=== PATIENT | female | born 1950 | race Hispanic/Latino ===

== ENCOUNTER 2025-07-03 06:06 | Day surgery (SDC) | payer MEDICARE ==
[2025-07-01 13:03] LABS: IMMATURE GRANULOCYTE ABSOLUTE 0.02 K/uL (0-1); NUCLEATED RED BLOOD CELLS 0.0 % (0.0-0.19); PLATELET COUNT (AUTO) 291 K/uL (130-400); RED BLOOD CELL COUNT(AUTO) 4.31 MIL/uL (4.00-5.50); RED CELL DISTRIBUTION WIDTH 12.2 % (11.0-15.5); WHITE BLOOD COUNT (AUTO) 10.1 K/uL (4.8-10.8)
[2025-07-01 13:09] VITALS: BP 123/69; PULSE 67; RESP 17; TEMP 98.1
[2025-07-01 13:13] LABS: CREATININE 0.7 mg/dL (0.5-1.0); GLOMERULAR FILTR. RATE CALC 92.0 mL/min (>90); GLUCOSE,RANDOM 91.0 mg/dL (70-105); SODIUM SERUM 136.0 mmol/L (136-145); UREA NITROGEN, BLOOD 15.0 mg/dL (7-18)
--- NOTE | 2025-07-01 14:22 | EKG ---
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
[2025-07-03] VITALS (15 sets, daily range): BP systolic 94–124; BP diastolic 56–71; PULSE 53–74; RESP 12–22; TEMP 97–97.3
[~2025-07-03] VITALS: Ht 154.9 cm; Wt 56.7 kg
[~2025-07-03 06:06] MED LIST: ALPR0.5T PO; CELE200C3 PO; CETI10TA57 PO; CHOL500051 PO; DAPA10TA PO; ESCI-8 PO; FLUT16H NASAL; FOLI1 PO; MELO-106 PO; MEMA10TA21 PO; NEBI5TAB12 PO; ROSU40 PO; TRAZ-187 PO
[2025-07-03] MEDS ORDERED: SUGAMMADEX SODIUM 200 MG/2 ML VIAL IV ONE (06:39)
[2025-07-03] MEDS ORDERED: LIDOCAINE PF 100MG/5ML (2%) SYRINGE 5ML ONE (06:44)
[2025-07-03] MEDS ORDERED: NEOSTIGMINE METHYLSULFATE 1MG/ML IV ONE (06:45)
[2025-07-03] MEDS ORDERED: SUCCINYLCHOLINE CHLORIDE 20 MG/ML 10 ML VIAL ONE (06:45)
[2025-07-03] MEDS ORDERED: GLYCOPYRROLATE 0.2 MG/ML 5 ML VIAL ONE (06:45)
[2025-07-03] MEDS ORDERED: MIDAZOLAM HCL 1 MG/ML 2ML VIAL ONE (06:49)
[2025-07-03] MEDS: LACTATED RINGERS 1000ML 1,000 ML IV ONE (08:07)
--- NOTE | 2025-07-03 10:50 | OP ---
Operative Note: DATE OF PROCEDURE: 07/03/25 SURGEON: CARMEN TREVINO DPM CHEMICAL LAB TECHNICIAN: Ashley Dumont ANESTHESIA: General PREOPERATIVE DIAGNOSIS: 1. Hallux valgus left foot 2. Hammertoe deformities 2nd and 3rd digits left foot POSTOPERATIVE DIAGNOSIS: Same Findings: Anatomical alignment was achieved PROCEDURE: 1. Lapidus tarsometatarsal joint arthrodesis left foot 2. Correction of hammertoe deformity 2nd and 3rd digits left foot ESTIMATED BLOOD LOSS: Minimal INDICATIONS: Patient exhausted all the conservative measures and requesting surgical correction of the deformity that is painful Injectables: 20 cc of 0.5% Marcaine plain postoperatively Specimen: None Materials: Abdi [employer] Nephew Evos set with combination of 2.7 screws and 2.4 screws with 2 x 4 hole plates Hemostasis: Pneumonic thigh tourniquet at 275 mm Hg for 120 minutes DESCRIPTION OF PROCEDURE: Patient was brought into operating room placed on table in a supine position and general anesthesia was induced. Time-out was called with all the staff in the room to identify the patient, procedure and procedure site. Patient's left lower extremity was prepped and draped in usual aseptic manner, exsanguinated utilizing Esmarch bandage and pneumonic thigh tourniquet was inflated at 275 mm Hg. Procedure 1. Hallux valgus correction with Lapidus tarsometatarsal joint arthrodesis left foot Curvilinear incision was made from the tarsometatarsal joint to the 1st metatarsophalangeal joint of the left foot. The incision was deepened through the subcutaneous tissue layer care being taken to retract and protect all the vital neurovascular structures. Medial dorsal cutaneous nerve was branching into the 1st inter metatarsal space at the tarsometatarsal joint level. It was carefully teased off from the surrounding soft tissue and retracted medially for the main branch and laterally for the variant branch. The attention was directed to the 1st MPJ laterally where deep transverse ligament was transected and abductor hallucis tendon was released from the base of the proximal phalanx. Capsulotomy was made and suspensory fibular sesamoidal ligament was transected. Sesamoids were severely displaced into the 1st inter metatarsal space when evaluated. Now the attention was directed back to the proximal aspect of the 1st metatarsal linear longitudinal incision was made over the tarsometatarsal joint and the periosteal layer was reflected medially and laterally. Distal 3 mm portion of the medial cuneiform and proximal 3 mm portion of the 1st metatarsal was resected and passed from the operative site. The resection was oriented so that the deformities reduced to when placed in anatomical position. First metatarsal was now reduced to anatomical position by laterally angulated and slightly plantar flex to accommodate for loss of length. It was temporary fixated utilizing K-wire and alignment was confirmed under fluoroscopy in multiple views. Sesamoid position was significantly reduced. Permanent fixation was then achieved utilizing 2 by planer locking plates and inner frag screw also to stabilize the anterior cuneiform instability. At the 1st MPJ medial capsule was tighten to take out the redundant tissue by doing a capsulorrhaphy procedure. Both hallux valgus and met primus varus were reduced to anatomical orientation. Procedure 2. Correction of hammertoe deformity 2nd digit left foot Linear longitudinal incision was made from PIPJ to MPJ of the 2nd digit on the left foot. Dorsal capsule was released at the MPJ along with the extensor tendon. Extensor tendon was also transected at the PIPJ level and capsular layer was released to expose the head of the proximal phalanx and base of the middle phalanx. The joint was then resected utilizing the saw. The pre-drilling was achieved in both proximal phalanx and middle phalanx and 2.4 mm cortical screw was utilized to stabilize the joint inserted into the intramedullary canal. Procedure 3. Correction of the hammertoe deformity left 3rd digit Because 3rd digit was more flexible than the 2nd digit and the amount of the deformity was not as significant, flexor tenotomy was performed at the DIPJ le gio. A dorsally 2 semi elliptical incision was made to resect the redundant tissue and also to help dorsiflexion at the PIPJ level. Surgical wounds were irrigated aggressively utilizing copious amounts of normal sterile saline with a pressure. The correction of the deformity and placement of all the internal fixation devices were confirmed under the fluoroscopy in multiple views. Capsular layers were reapproximated utilizing 3-0 Vicryl. Subcutaneous tissue layer was reapproximated utilizing 4-0 Vicryl. Skin layer was reapproximated utilizing 4-0 nylon. The above injectable was utilized to obtain a local block. Pneumonic thigh tourniquet was released. There was no major bleeder. Capillary fill time of distal tip of the digits became within normal limits. Dry sterile dressing followed by Garcia compression dressing was applied. CARMEN TREVINO [facility] Jul 03, 2025 10:50
--- NOTE | 2025-07-03 12:30 | NUR ---
Full and complete discharge instructions given to Patient and Family both verbally and in writing. Explained Surgical procedure precautions and follow up. Left foot incision site with bernardino wrap clean dry and intact. No evidence of bleeding, bruising or hematoma. Cam boot applied. Patient remains neurovascularly intact. All questions answered. PIV removed with catheter tip intact. at bedside appearing supportive. W/C to POV with to home
--- NOTE | 2025-07-10 14:27 | HMCIMG ---
FOOT COMP 3+VWS LT REASON: ORIF LEFT FOOT, HAMMER TOE, SX TECHNIQUE: 6 views were obtained. FINDINGS: Patient undergoing ORIF of left foot for hammer toe surgery.. Fluoroscopy time 29 seconds. IMPRESSION: Details of the finding and operative notes.
== END 2025-07-03 12:30 | disposition home or self-care (01) ==
LOC: DAH 06:06
PROVIDERS: ATTEND Podiatrist
DX: M20.12 Hallux valgus (acquired), left foot (principal); M20.42 Other hammer toe(s) (acquired), left foot; F41.9 Anxiety disorder, unspecified; Z87.891 Personal history of nicotine dependence; Z79.899 Other long term (current) drug therapy; Z98.890 Other specified postprocedural states
CPT/HCPCS: 80048; 85025; 36415; 93005; 28297; 28285 ×2; 73630; A6260; C1713 ×9; A4663; A4649 ×3; J7120; J3010 ×3; J1100; J0330; J0665 ×2; J3490 ×4; J2003; J2250; J2704; J2405; J2710; J2795; J0690 ×2; A6444; A4930; A4215; A4213; A4222; A4221; A4216; A4223 ×2